=== PATIENT | male | born 2005 ===

== ENCOUNTER 2024-12-24 17:52 | Observation (INO) | payer BC ==
[~2024-12-24] VITALS: Ht 180.3 cm; Wt 97.4 kg
[2024-12-24] MEDS ORDERED: NS 1,000 ML IV SCH (18:45)
[2024-12-24] MEDS ORDERED: Ketorolac Tromethamine 15mg Vial IV ONE (18:45)
[2024-12-24] MEDS ORDERED: Ondansetron HCl 2 MG / ML 2ML Vial IV ONE (18:45)
[2024-12-24 19:26] LABS: BASOPHILS ABSOLUTE AUTO 0.05 K/mm3 (0.00-0.23); BASOPHILS PERCENT AUTO 0 % (0-2); EOSINOPHILS PERCENT AUTO 0 % (0-6); Hematocrit 44.4 % (37.0-53.0); Hemoglobin 15.6 g/dL (13.5-17.5); IMMATURE GRAN ABSOLUTE AUTO 0.08 K/mm3 (0.00-0.10); IMMATURE GRAN PERCENT AUTO 1 % (0-1); LYMPHOCYTES ABSOLUTE AUTO 1.11 K/mm3 (0.84-5.20); LYMPHOCYTES PERCENT AUTO 7 % (21-46); MONOCYTES ABSOLUTE AUTO 0.95 K/mm3 (0.16-1.47); MONOCYTES PERCENT AUTO 6 % (4-13); Mean Corpuscular HGB 31.3 pg (26.0-34.0); Mean Corpuscular HGB Conc 35.1 g/dL (31.5-36.5); Mean Corpuscular Volume 89 fL (80-100); Mean Platelet Volume 9.6 fL (9.1-12.4); NEUTROPHILS ABSOLUTE AUTO 14.85 K/mm3 (1.96-9.15); NEUTROPHILS PERCENT AUTO 87 % (41-73); Platelet Count 340 K/mm3 (150-400); RDW Coefficient Variation 11.7 % (11.7-14.2); RDW Standard Deviation 37.5 fL (35.1-46.3); Red Blood Cell Count 4.99 M/mm3 (4.30-5.90); White Blood Cell Count 17.04 K/mm3 (4.00-11.30)
[2024-12-24 19:43] LABS: Albumin, Blood 4.1 g/dL (3.4-5.0); Albumin/Globulin Ratio 1.1 (0.8-1.8); Bilirubin, Total 1.3 mg/dL (0.1-1.0); Bun/Creatinine Ratio 16.2 (12.0-20.0); Calcium, Blood 9.8 mg/dL (8.5-10.1); Creatinine, Blood 0.86 mg/dL (0.60-1.20); Globulin, Blood 3.9 g/dL (2.2-4.0); Potassium, Blood 3.5 mmol/L (3.5-5.5)
[2024-12-24] MEDS ORDERED: CefTRIAXone Sodium 1,000 MG in NS 100 ML IV ONE (20:45)
[2024-12-24] MEDS ORDERED: MetroNIDAZOLE 500MG/NS 100 ml 100 ML IV ONE (20:45)
[2024-12-24] MEDS ORDERED: Ampicillin Sod/Sulbactam Sod 3 GM in NS 100 ML IV ONE (20:55)
[2024-12-24] MEDS ORDERED: Morphine Sulfate 4 MG/1 ML Injection IV ONE (21:00)
[2024-12-24 22:18] VITALS: BP 134/69
[2024-12-24] MEDS ORDERED: Ondansetron HCl 2 MG / ML 2ML Vial IV PRN (22:55)
[2024-12-24] MEDS ORDERED: Acetaminophen 325 MG TABLET PO PRN (22:55)
[2024-12-24] MEDS ORDERED: FentaNYL Citrate 50 MCG/ML 2 ML Injection IV PRN (22:55)
[2024-12-24] MEDS ORDERED: Lactated Ringer's 1,000 ML IV SCH (22:55)
[2024-12-25] VITALS (17 sets, daily range): BP systolic 112–135; BP diastolic 57–85
[2024-12-25] MEDS ORDERED: Ampicillin Sod/Sulbactam Sod 3 GM in NS 100 ML IV SCH (03:00)
--- NOTE | 2024-12-25 04:16 | NUR ---
SHIFT SUMMARY PT ARRIVED TO UNIT LAST NIGHT AND ADMISSION COMPLETE. PT GIVEN WIPES FOR CHG BATH AT 0400; BATH AND MOUTHWASH INSTRUCTIONS GIVEN TO PT AND MOM. PT NASAL SWAB COMPLETED. PT AMBULATES TO RESTROOM INDEPENDENTLY. PT MEDICATED PER EMAR FOR PAIN. PT AND MOM UPDATED ON PLAN OF CARE.
[2024-12-25] MEDS ORDERED: Bupivacaine 0.5% HCl 5 MG/ML 30MLVIAL ONE (07:35)
--- NOTE | 2024-12-25 07:37 | NUR ---
PT HAS 20G IV TO RIGHT AC THAT FLUSHES WELL AND FLOWS TO GRAVITY.
[2024-12-25] MEDS ORDERED: Lactated Ringer's 1,000 ML IV SCH (07:40)
[2024-12-25] MEDS ORDERED: Ondansetron HCl 2 MG / ML 2ML Vial ONE (07:49)
[2024-12-25] MEDS ORDERED: FentaNYL Citrate 50 MCG/ML 2 ML Injection ONE ×2 (07:49→08:44)
[2024-12-25] MEDS ORDERED: Sugammadex Sodium 200 MG/2ML SDV (100 MG/ML) ONE (07:49)
[2024-12-25] MEDS ORDERED: Midazolam HCl 1MG / ML 2ML Vial ONE (07:49)
[2024-12-25] MEDS ORDERED: Dexamethasone Sod Phos 10 MG/ML 1ML VIAL ONE (07:49)
[2024-12-25] MEDS ORDERED: Rocuronium Bromide 10 MG/ML 5ML Injection IV ONE ×2 (07:49→08:56)
[2024-12-25] MEDS ORDERED: propofoL 40 ML IV ONE (07:49)
[2024-12-25] MEDS ORDERED: Citric Acid/Sodium Citrate 30 ML BTL PO ONE (08:10)
[2024-12-25] MEDS ORDERED: Albuterol 2.5 MG/3 ML VIAL INH SCH (08:10)
[2024-12-25] MEDS ORDERED: Metoclopramide HCl 5MG / ML 2ML Vial IV PRN (08:25)
--- NOTE | 2024-12-25 08:28 | NUR ---
PT BROUGHT FROM FLOOR TO DAY SURGERY FOR PROCEDURE, ACCOMPANIED BY HIS PARENTS. History, Chart, Medications and Allergies reviewed before start of procedure. Lungs clear T/O to Auscultation. Patient confirms NPO status and agrees with scheduled surgery. Pre-Op teaching done. Pt verbalizes understanding. PT BELONGINGS LEFT IN PERSONAL ROOM ON SURGICAL FLOOR.
[2024-12-25] MEDS ORDERED: Ondansetron HCl 2 MG / ML 2ML Vial IV PRN (08:30)
[2024-12-25] MEDS ORDERED: Albuterol 2.5 MG/3 ML VIAL INH PRN (08:30)
[2024-12-25] MEDS ORDERED: FentaNYL Citrate 50 MCG/ML 2 ML Injection IV PRN ×3 (08:30)
[2024-12-25] MEDS ORDERED: Atropine Sulfate 0.1 MG/ML 10ML SYR IV PRN (08:30)
[2024-12-25] MEDS ORDERED: Ketorolac Tromethamine 30mg Vial ONE (08:44)
--- NOTE | 2024-12-25 09:01 | NUR ---
12/25/24 0901 Cheyanne Rolle 3G STARTED IN PRE OP.
[2024-12-25] MEDS ORDERED: OxyCODONE HCL 5 MG TAB PO PRN (09:35)
[2024-12-25] MEDS ORDERED: Ketorolac Tromethamine 15mg Vial IV PRN (09:50)
[2024-12-25] MEDS ORDERED: Acetaminophen325 M1 PO (10:07)
[2024-12-25] MEDS ORDERED: OXYC5 PO (10:08)
--- NOTE | 2024-12-25 10:33 | NUR ---
PT ARRIVED BACK FROM PACU AT APPROXIMATELY 1025. PT ALERT, ORIENTED AND PLEASANT. PT DENIES PAIN AT THIS TIME. VSS. PT EDUCATED TO CONSUME FOOD SLOWLY TO SEE HOW HE TOLERATES IT. FAMILY AT BEDSIDE FOR SUPPORT. CALL LIGHT WITHIN REACH.
--- NOTE | 2024-12-25 15:11 | NUR ---
DISCHARGE PT PROVIDED WITH WRITTEN AND VERBAL DISCHARGE INSTRUCTIONS, HE AND HIS FAMILY REPORTED UNDERSTANDING. PT WAS ABLE TO TOLERATE PO, PAIN MANAGED, AMBULATING AND VSS PRIOR TO DISCHARGE. PT AMBULATED OUT AT APPROXIMATELY 1505.
[2024-12-25] MEDS ORDERED: Sennosides 8.6 MG Tab PO SCH (21:00)
== END 2024-12-25 15:02 | disposition home or self-care (01) ==
LOC: ER 17:52 → MEDS 17:53 → SURS 17:53
PROVIDERS: Student in an Organized Health Care Education/Training Program; Surgery; ADMIT Surgery
PROC: 0DTJ4ZZ Resection of Appendix, Percutaneous Endoscopic Approach (ICD-10-PCS; principal; 2024-12-25 08:00)
DX: K35.30 Acute appendicitis with localized peritonitis, without perforation or gangrene (principal)
CPT/HCPCS: 74177; 80053; 85025; 88304; 96361; 96365; 96374-59; 96375; 99285-25; A9270; G0378; J0295; J0696; J1100; J1885; J2250; J2270; J2405; J2704; J3010; J7030; J7120; Q9967